=== PATIENT | female | born 1980 | race Caucasian/White ===

== ENCOUNTER 2020-06-28 12:57 | Emergency (ER) | payer OTHER ==
--- NOTE | 2020-06-28 13:34 | ED ---
SOB HPI - General Chief Complaint: Shortness of Breath Stated Complaint: +Covid, cough, SOB Time Seen by Provider: 06/28/20 13:12 Source: patient Mode of arrival: ambulatory Limitations: no limitations - History of Present Illness Initial Comments: 40-year-old female presenting to the emergency department with a chief complaint cough, chest tightness, shortness of breath. Patient states she began having respiratory symptoms exactly 10 days ago on . Patient states 2 days after she was tested positive for occult blood. Patient reports over the last few days she has noticed her heart rate is higher than usual she also has associated chest tightness. Patient also reports some shortness of breath especially on exertion. She denies any hemoptysis, unilateral leg swelling. She denies any fevers or chills. She does report occasional clear bilateral rhinorrhea but nothing of significance. She does report a nonproductive dry cough. Does report taking ritp-rex-krobnkx analgesics with minimal improvement of symptoms. Patient states she received the pfizer vaccine, first dose on the day she became feeling symptomatically. - Related Data Home Medications Medication Instructions Recorded Confirmed ALPRAZolam [Xanax] 0.25 mg PO DAILY PRN 06/28/20 06/28/20 Multivitamins, Thera [Multivitamin 1 tab PO DAILY 06/28/20 06/28/20 (formulary)] [place]-3 Fatty Acids/Fish Oil [Fish 1 tab PO DAILY 06/28/20 06/28/20 Oil 1,000 mg Softgel] Sertraline [Zoloft] 50 mg PO DAILY 06/28/20 06/28/20 Allergies Allergy/AdvReac Type Severity Reaction Status Date / Time penicillin G Allergy Rash/Hives Verified 06/28/20 14:31 Review of Systems ROS Statement: Those systems with pertinent positive or pertinent negative responses have been documented in the HPI. ROS Other: All systems not noted in ROS Statement are negative. Past Medical History Additional Past Medical History / Comment(s): pt states uterine fibroid. found out when she was about 9 weeks . has not affected . History of Any Multi-Drug Resistant Organisms: None Reported Past Surgical History: Adenoidectomy, Section, Tonsillectomy Additional Past Surgical History / Comment(s): adenoidectomy and tonsillectomy in 2002. lasik eye surgery 2009 Past Anesthesia/Blood Transfusion Reactions: No Reported Reaction Past Psychological History: No Psychological Hx Reported Smoking Status: Never smoker Past Alcohol Use History: Occasional Past Drug Use History: None Reported - Past Family History Father Family Medical History: Cancer, Hypertension Additional Family Medical History / Comment(s): maternal father. prostate cancer. Mother Family Medical History: Hypertension Additional Family Medical History / Comment(s): maternal mother. General Exam Limitations: no limitations General appearance: alert, in no apparent distress Head exam: Present: atraumatic, normocephalic, normal inspection Eye exam: Present: normal appearance, PERRL, EOMI Pupils: Present: normal accommodation ENT exam: Present: normal exam, normal oropharynx, mucous membranes moist Neck exam: Present: normal inspection, full ROM. Absent: tenderness, lymphadenopathy Respiratory exam: Present: normal lung sounds bilaterally. Absent: respiratory distress, wheezes, rales, rhonchi, stridor Cardiovascular Exam: Present: regular rate, normal rhythm, normal heart sounds Extremities exam: Present: normal inspection, full ROM, normal capillary refill. Absent: tenderness, pedal edema, joint swelling, calf tenderness Back exam: Present: normal inspection, full ROM. Absent: tenderness, CVA tenderness (R), CVA tenderness (L) Neurological exam: Present: alert, oriented X3, normal gait Psychiatric exam: Present: normal affect, normal mood Skin exam: Present: warm, dry, intact, normal color Course Vital Signs 06/28/20 06/28/20 13:06 14:35 Temperature 99.1 F 98.3 F Pulse Rate 109 H 100 Respiratory 20 18 Rate Blood Pressure 145/102 143/101 O2 Sat by Pulse 97 96 Oximetry Medical Decision Making - Medical Decision Making 40-year-old female presented to emergency department with chief complaint of shortness of breath. On physical examination, patient is not in any respiratory distress. She is clear to auscultation bilaterally. Chest x-ray is unremarkable. EKG showing sinus rhythm and no ST or T-wave changes. CBC CMP unremarkable. Coags within normal limits. D-dimer negative. Only small elevation in LDH. Patient advised to take Tylenol if she develops a fever. She was advised to finish to quarantine. Return parameters thoroughly discussed patient was understanding and agreeable. Case discussed with physician. - Lab Data Result diagrams: 06/28/20 13:38 06/28/20 13:38 Lab Results 06/28/20 06/28/20 06/28/20 Range/Units 13:38 13:38 13:38 WBC 6.6 (3.8-10.6) k/uL RBC 4.48 (3.80-5.40) m/uL Hgb 14.7 (11.4-16.0) gm/dL Hct 42.3 (34.0-46.0) % MCV 94.3 (80.0-100.0) fL MCH 32.8 (25.0-35.0) pg MCHC 34.8 (31.0-37.0) g/dL RDW 11.5 (11.5-15.5) % Plt Count 201 (150-450) k/uL MPV 9.1 Neutrophils % 60 % Lymphocytes % 29 % Monocytes % 6 % Eosinophils % 3 % Basophils % 1 % Neutrophils # 4.0 (1.3-7.7) k/uL Lymphocytes # 1.9 (1.0-4.8) k/uL Monocytes # 0.4 (0-1.0) k/uL Eosinophils # 0.2 (0-0.7) k/uL Basophils # 0.1 (0-0.2) k/uL PT 10.5 (9.0-12.0) sec INR 1.0 (<1.2) APTT 22.5 (22.0-30.0) sec D-Dimer 0.33 (<0.60) mg/L FEU Sodium 137 (137-145) mmol/L Potassium 4.7 (3.5-5.1) mmol/L Chloride 106 (98-107) mmol/L Carbon Dioxide 20 L (22-30) mmol/L Anion Gap 11 mmol/L BUN 14 (7-17) mg/dL Creatinine 0.74 (0.52-1.04) mg/dL Est GFR (CKD-EPI)AfAm >90 (>60 ml/min/1.73 sqM) Est GFR (CKD-EPI)NonAf >90 (>60 ml/min/1.73 sqM) Glucose 99 (74-99) mg/dL Plasma Lactic Acid Hermelindo (0.7-2.0) mmol/L Calcium 9.4 (8.4-10.2) mg/dL Magnesium 1.9 (1.6-2.3) mg/dL Ferritin Cancelled Total Bilirubin 0.5 (0.2-1.3) mg/dL AST 49 H (14-36) U/L ALT 44 H (4-34) U/L Alkaline Phosphatase 65 (38-126) U/L Lactate Dehydrogenase 684 H (313-618) U/L C-Reactive Protein <5.0 (<10.0) mg/L Total Protein 7.6 (6.3-8.2) g/dL Albumin 4.5 (3.5-5.0) g/dL 06/28/20 Range/Units 13:38 WBC (3.8-10.6) k/uL RBC (3.80-5.40) m/uL Hgb (11.4-16.0) gm/dL Hct (34.0-46.0) % MCV (80.0-100.0) fL MCH (25.0-35.0) pg MCHC (31.0-37.0) g/dL RDW (11.5-15.5) % Plt Count (150-450) k/uL MPV Neutrophils % % Lymphocytes % % Monocytes % % Eosinophils % % Basophils % % Neutrophils # (1.3-7.7) k/uL Lymphocytes # (1.0-4.8) k/uL Monocytes # (0-1.0) k/uL Eosinophils # (0-0.7) k/uL Basophils # (0-0.2) k/uL PT (9.0-12.0) sec INR (<1.2) APTT (22.0-30.0) sec D-Dimer (<0.60) mg/L FEU Sodium (137-145) mmol/L Potassium (3.5-5.1) mmol/L Chloride (98-107) mmol/L Carbon Dioxide (22-30) mmol/L Anion Gap mmol/L BUN (7-17) mg/dL Creatinine (0.52-1.04) mg/dL Est GFR (CKD-EPI)AfAm (>60 ml/min/1.73 sqM) Est GFR (CKD-EPI)NonAf (>60 ml/min/1.73 sqM) Glucose (74-99) mg/dL Plasma Lactic Acid Hermelindo 1.5 (0.7-2.0) mmol/L Calcium (8.4-10.2) mg/dL Magnesium (1.6-2.3) mg/dL Ferritin Total Bilirubin (0.2-1.3) mg/dL AST (14-36) U/L ALT (4-34) U/L Alkaline Phosphatase (38-126) U/L Lactate Dehydrogenase (313-618) U/L C-Reactive Protein (<10.0) mg/L Total Protein (6.3-8.2) g/dL Albumin (3.5-5.0) g/dL Disposition Clinical Impression: COVID-19 Disposition: HOME SELF-CARE Condition: Stable Instructions (If sedation given, give patient instructions): Acute Bronchitis (ED) Additional Instructions: Take Tylenol if he develop a fever. Return to emergency department if symptoms worsen. Is patient prescribed a controlled substance at d/c from ED?: No Referrals: Nonstaff,Physician [Primary Care Provider] - 1-2 days Time of Disposition: 14:59
[2020-06-28 13:51] LABS: Basophils # (A) 0.1 k/uL (0-0.2); Basophils % (A) 1 %; Eosinophils # (A) 0.2 k/uL (0-0.7); Eosinophils % (A) 3 %; HCT 42.3 % (34.0-46.0); HGB 14.7 gm/dL (11.4-16.0); Lymphocytes # (A) 1.9 k/uL (1.0-4.8); Lymphocytes % (A) 29 %; MCH 32.8 pg (25.0-35.0); MCHC 34.8 g/dL (31.0-37.0); MCV 94.3 fL (80.0-100.0); Mean Platelet Volume 9.1; Monocytes # (A) 0.4 k/uL (0-1.0); Monocytes % (A) 6 %; Neutrophils % (A) 60 %; Platelet Count 201 k/uL (150-450); RBC 4.48 m/uL (3.80-5.40); RDW 11.5 % (11.5-15.5); WBC 6.6 k/uL (3.8-10.6)
[2020-06-28 14:00] LABS: ALT 44 U/L (4-34); African American GFR (CKD) >90 (>60 ml/min/1.73 sqM); Albumin 4.5 g/dL (3.5-5.0); Anion Gap 11 mmol/L; Blood Urea Nitrogen 14 mg/dL (7-17); C Reactive Protein <5.0 mg/L (<10.0); Calcium 9.4 mg/dL (8.4-10.2); Carbon Dioxide 20 mmol/L (22-30); Chloride 106 mmol/L (98-107); D-Dimer 0.33 mg/L FEU (<0.60); Glucose 99 mg/dL (74-99); LDH 684 U/L (313-618); Non-African American GFR(CKD) >90 (>60 ml/min/1.73 sqM); Partial Thromboplastin Time 22.5 sec (22.0-30.0); Prothrombin Time 10.5 sec (9.0-12.0); Sodium 137 mmol/L (137-145); Total Bilirubin 0.5 mg/dL (0.2-1.3); Total Protein 7.6 g/dL (6.3-8.2)
--- NOTE | 2020-06-28 14:00 | XR ---
EXAMINATION TYPE: XR chest 1V portable DATE OF EXAM: 06/28/2020 COMPARISON: NONE HISTORY: Cough. TECHNIQUE: Single frontal view of the chest is obtained. FINDINGS: There is no focal air space opacity, pleural effusion, or pneumothorax seen. The cardiac silhouette size is within normal limits. The osseous structures are intact. IMPRESSION: No acute process.
[2020-06-28 14:01] LABS: AST 49 U/L (14-36); Alkaline Phosphatase 65 U/L (38-126); Magnesium 1.9 mg/dL (1.6-2.3); Potassium 4.7 mmol/L (3.5-5.1)
[2020-06-28 14:36] VITALS: RESP 18
[2020-06-28] MEDS ORDERED: hydrALAZINE HCL 20 MG/ML 1 ML VIAL IVP STA (15:35)
[2020-06-28 16:07] VITALS: BP 134/89; PULSE 92; TEMP 97.9
== END 2020-06-28 16:07 | disposition home or self-care (01) ==
LOC: EC 12:57
DX: U07.1 COVID-19 (principal); Z88.0 Allergy status to penicillin; Z90.89 Acquired absence of other organs
CPT/HCPCS: 36415; 93005; 85379; 80053; 82728; 83605; 83615; 83735; 85025; 85610; 85730; 86140; 87040; 84145; 71045; 99285; 96374; J0360

== ENCOUNTER → 2022-10-01 | Outpatient (CLI) | payer BC ==
[2022-10-02 02:17] LABS: Anion Gap 8.6 mmol/L (10.00-18.00); Carbon Dioxide 27.4 mmol/L (20.0-27.5); Potassium 4.6 mmol/L (3.5-5.5)
[2022-10-02 02:32] LABS: Basophils # (A) 0.05 X 10*3/uL (0.00-0.10); Basophils % (A) 0.8 %; Eosinophils # (A) 0.23 X 10*3/uL (0.04-0.35); Eosinophils % (A) 3.6 %; HCT 42.6 % (37.2-46.3); HGB 13.7 g/dL (12.0-15.0); Immature Grans, Automated 0 %; Lymphocytes # (A) 1.91 X 10*3/uL (0.90-5.00); Lymphocytes % (A) 29.8 %; MCHC 32.2 g/dL (32.0-37.0); MCV 96.4 fL (80.0-97.0); Mean Platelet Volume 12.3 fL (9.5-12.2); Monocytes # (A) 0.49 X 10*3/uL (0.20-1.00); Monocytes % (A) 7.6 %; NRBC Per 100 WBC 0 /100 WBCS (0.0-0.0); Neutrophils # (A) 3.74 X 10*3/uL (1.80-7.70); Neutrophils % (A) 58.2 %; Platelet Count 230 X 10*3/uL (140-440); RBC 4.42 X 10*6/uL (4.10-5.20); RDW 11.9 % (11.5-14.5); WBC 6.42 X 10*3/uL (4.50-10.00)
== END | disposition home or self-care (01) ==
LOC: LABPAT 08:58
PROVIDERS: ATTEND Orthopaedic Surgery Hand Surgery
DX: Z01.812 Encounter for preprocedural laboratory examination (principal); G56.02 Carpal tunnel syndrome, left upper limb; M18.12 Unilateral primary osteoarthritis of first carpometacarpal joint, left hand
CPT/HCPCS: 36415; 80051; 85025

== ENCOUNTER 2022-10-13 08:48 | Day surgery (SDC) | payer BC, OTHER ==
--- NOTE | 2022-10-11 09:00 | P.HPOR ---
History of Present Illness H&P Date: 10/11/22 Subjective: This is a 42 year old female that presents today for initial evaluation regarding a year and half history of progressively worsening left hand numbness and tingling and pain at the base of the thumb. Patient states she has numbness that wakes her from sleep at night as well as pain with any type of pinch and grasp of the left hand. She has a history of a right endoscopic carpal tunnel release done by a [facility] surgeon approximately one year prior, which she responded well to. She denies any injury or inciting event. She works at the [employer] and also works at [employer]. Physical Examination: LUE: AIN/PIN/Radial/Ulnar/Median motor intact. Radial/Ulnar/Median SILT. 2+/4 Radial/Ulnar pulses palpated. 5/5 APB, 5/5 FDI. Negative Finkelsteins, positive CMC grind, positive Durkan's compression. Imaging: X-Rays of the left hand 3V taken in office today demonstrate mild to moderate thumb CMC arthritis Impression: 1.) Left carpal tunnel syndrome 2.) Left thumb CMC arthritis, mild to moderate Plan: Diagnosis and treatment options were discussed with the patient. She has failed conservative treatment for her left carpal tunnel syndrome and has progressively worsening symptoms. She would like to pursue a left endoscopic vs open carpal tunnel release with a left thumb CMC steroid injection. Risks and benefits of s urgery including bleeding, infection, damage to surrounding tissue, need for further surgery, possible need to convert to open procedure, residual numbness were discussed and the patient wished to go forward with surgery. Information regarding a thumb CMC metagrip Push splint were also given to the patient. The patient was agreeable with this plan. -Tobi Latham DO Orthopedic Hand/Upper Extremity Surgeon Past Medical History Additional Past Medical History / Comment(s): pt states uterine fibroid. found out when she was about 9 weeks . has not affected . History of Any Multi-Drug Resistant Organisms: None Reported Past Surgical History: Adenoidectomy, Section, Tonsillectomy Additional Past Surgical History / Comment(s): adenoidectomy and tonsillectomy in 2002. lasik eye surgery 2009 Past Anesthesia/Blood Transfusion Reactions: No Reported Reaction Past Psychological History: No Psychological Hx Reported Smoking Status: Never smoker Past Alcohol Use History: Occasional Past Drug Use History: None Reported - Past Family History Father Family Medical History: Cancer, Hypertension Additional Family Medical History / Comment(s): maternal father. prostate cancer. Mother Family Medical History: Hypertension Additional Family Medical History / Comment(s): maternal mother. Medications and Allergies Home Medications Medication Instructions Recorded Confirmed Type ALPRAZolam [Xanax] 0.25 mg PO DAILY PRN 06/28/20 10/11/22 History Co Q-10 (Unknown Dose) 1 dose PO DAILY 10/11/22 History Collagen Supplement 1 dose PO DAILY 10/11/22 History Loratadine [Claritin] 10 mg PO DAILY 10/11/22 10/11/22 History Multivit with Calcium,Iron,Min 1 each PO DAILY 10/11/22 10/11/22 History [Women's Multivitamin] Vitamin B-12 (Unknown Dose) 1 dose PO DAILY 10/11/22 History Vitamin C (Unknown Dose) 1 dose PO DAILY 10/11/22 History Vitamin C/Biotin [Hair, Skin and 1 tab PO DAILY 10/11/22 10/11/22 History Nails Chew] Vitamin D (Unknown Dose) 1 dose PO DAILY 10/11/22 History Allergies Allergy/AdvReac Type Severity Reaction Status Date / Time penicillin G Allergy Severe Rash/Hives Verified 10/11/22 08:50 Physical Examination Osteopathic Statement: *. No significant issues noted on an osteopathic structural exam other than those noted in the History and Physical/Consult.
[2022-10-11 09:02] VITALS: BMI 29.7
[~2022-10-13 08:48] MED LIST: DEXAMETHASONE SOD PHOSPHATE 4 MG/ML 1 ML VIAL IV ONE; HYDROmorphone 0.5 MG/0.5 ML SYRINGE IVP PRN; LACTATED RINGERS 1,000 ML IV SCH; LIDOCAINE 1% (10MG/ML) FOR IV START INTRADERMA PRN; MIDAZOLAM 2 MG/2 ML VIAL IV PRN; ONDANSETRON 4 MG/2 ML VIAL IVP ONE; Pre Op ABX Message 1 EACH MISC MISCELLANE ONE
[2022-10-13 09:14] VITALS: RESP 16; TEMP 97.5
[2022-10-13] MEDS ORDERED: PROPOFOL 10 MG/ML 20 ML VIAL IV ONE (09:23)
[2022-10-13] MEDS ORDERED: fentaNYL (PF) 50 MCG/ML 2 ML AMP ONE (09:23)
[2022-10-13] MEDS ORDERED: MIDAZOLAM 2 MG/2 ML VIAL ONE (09:23)
[2022-10-13] MEDS ORDERED: BUPIVACAINE (PF) 0.5% 30 ML VIAL SQ ONE (09:30)
[2022-10-13] MEDS ORDERED: methylPREDNISolone ACETATE 40 MG/ML 1 ML VIAL MISCELLANE ONE (09:30)
[2022-10-13] MEDS ORDERED: LIDOCAINE 2% (PF) 20 MG/ML 10 ML AMP SQ ONE (09:30)
--- NOTE | 2022-10-13 09:46 | P.OP ---
Date of Procedure: 10/13/22 Preoperative Diagnosis: 1.) Left carpal tunnel syndrome 2.) Left thumb CMC arthritis Postoperative Diagnosis: 1.) Left carpal tunnel syndrome 2.) Left thumb CMC arthritis Procedure(s) Performed: 1.) Left endoscopic carpal tunnel release 2.) Left thumb CMC steroid injection Anesthesia: MAC Surgeon: Tobi Latham Electric System Operator #1: Mikey Yang Estimated Blood Loss (ml): 0 Pathology: none sent Condition: stable Disposition: PACU Description of Procedure: This is a 42 year old female who presents today for a left endoscopic carpal tunnel release and left thumb CMC steroid injection after having failed conservative treatment in the past. Risks and benefits of surgery were discussed with the patient including bleeding, damage to surrounding tissue, infection, need to convert to open procedure, need for further surgery as well as risks of anesthesia including pulmonary embolism and even and the patient wished to proceed with surgical intervention. The patients was seen in the pre-operative area by myself. Consent and H&P were completed and updated. The correct extremity was marked in the pre-operative area by myself and all other questions were answered. Operative Narrative: The patient was brought to the operating room by the department of anesthesia. They remained on the portable stretcher and a rolling hand table was brought to the side of the operative extremity. Pre-operative time out was performed indicating the correct patient, procedure and laterality. All in the room agreed. The patient was then drifted off to sleep by the department of anesthesia. MAC anesthesia was utilized and a 50:50 mixture of 1% Lidocaine and 0.5% bupivacaine was injected into the subcutaneous tissues of the palmar skin, 8ccs total. Alcohol swab was used to prep the left thumb CMC joint. A mixture of .5/.5 cc's of 0.5% marcaine and 40 mg of depomedrol was injected into the thumb CMC joint. A nonsterile tourniquet was then applied to the operative extremity and the left upper extremity was then prepped and draped in normal sterile fashion. The operative extremity was the exsanguinated with an esmarch bandage and the tourniquet was inflated to 250mmHg. 15 blade scalpel was utilized to make a transverse incision on the palmar skin just ulnar to the palmaris longus tendon at the level of the distal wrist crease. Ragnell retractor was then placed radially and blunt dissection was performed to reveal the distal forearm fascia. This was lifted with fine Bhargav pick ups and Vandanar tenotomy scissors were then used to open the forearm fascia transversely and a double skin hook was then placed. Hamate finder was placed into the carpal tunnel and then sequential sized dilators were inserted followed by the synovial elevator to separate the flexor tenosynovium from the undersurface of the transverse carpal ligament and a washboard texture was felt. The Micro[employer] endoscopic carpal tunnel release system gun was the then inserted into the carpal tunnel hugging the deep portion of the transverse carpal ligam ent in line with the base of the ring finger. Transverse fibers of the ligament were directly visualized. Pressure was applied on the palm to reveal the distal extent of the transverse carpal ligament. The blade was then deployed and the distal half of the transverse carpal ligament was released. The scope was then brought distal again and remaining transverse fibers were incised with the blade. The proximal half of the transverse carpal ligament was then divided and again the scope was advanced distal and remaining transverse fibers were incised with the blade. The radial and ulnar leaflets were directly visualized and mobile consistent with complete release. Tenotomy scissors were then utilized to release the remaining distal forearm fascia under direct visualization taking care to preserve the palmar cutaneous branch of the median nerve. Skin closure was performed with interrupted 4-0 Monocryl suture followed by Mastisol and steri strips. Sterile dressing was applied consisting of adaptic, 4x4s, Webril, and an marina bandage. Tourniquet was let down and the hand immediately was well perfused. The patient was then woken by the department of anesthesia and transferred to PACU in stable condition. Mikey LINDSAY was present for the case in its entirety and assisted in major portions of the case and protection of vital neurovascular structures. Tobi Latham D.O. Orthopedic Hand/Upper Extremity Surgeon
[2022-10-13 10:06] VITALS: BP 119/82; PULSE 77
== END 2022-10-13 10:20 | disposition home or self-care (01) ==
LOC: OR 08:48
PROVIDERS: ATTEND Orthopaedic Surgery Hand Surgery
DX: G56.02 Carpal tunnel syndrome, left upper limb (principal); M18.12 Unilateral primary osteoarthritis of first carpometacarpal joint, left hand; Z98.890 Other specified postprocedural states; Z90.89 Acquired absence of other organs; Z98.891 History of uterine scar from previous surgery; Z86.59 Personal history of other mental and behavioral disorders; Z82.49 Family history of ischemic heart disease and other diseases of the circulatory system; Z88.0 Allergy status to penicillin; Z79.899 Other long term (current) drug therapy
CPT/HCPCS: 81025; 29848; 20600; J2250; J1030; J1100; J2001; J2405; J3010; J2704